=== PATIENT | female | born 1950 | race Caucasian/White ===

== ENCOUNTER 2024-08-24 10:58 | Inpatient (IN) | payer OTHER, MEDICARE, SELFPAY ==
[2024-08-24] VITALS (39 sets, daily range): BP systolic 110–195; BP diastolic 52–86; PULSE 98–139; RESP 13–37; TEMP 36.9–37.6; O2SAT 91–99; BMI 48.2; BMI 49.6
--- NOTE | 2024-08-24 11:48 | DI.RAD.S_ITS ---
PROCEDURE: XR CHEST 1V INDICATIONS: suspected sepsis TECHNIQUE: One view of the chest was acquired. COMPARISON: None. FINDINGS: Surgical changes and devices: None. Lungs and pleura: Lungs are clear. No pleural effusions or pneumothorax. Mediastinum: Mediastinal contours appear normal. Heart size is normal. Bones and chest wall: No suspicious bony lesions. Overlying soft tissues appear unremarkable. IMPRESSION: No acute pulmonary process. Dictated by: Lamar Hui M.D. on 08/24/2024 at 12:34 Approved by: Lamar Hui M.D. on 08/24/2024 at 12:34
--- NOTE | 2024-08-24 11:48 | EKG_ITS ---
[place] [id number] [place] [id number] Test Date: 2024-08-24 Pat Name: Ximena Steve Department: [facility] Room: Gender: Female Manager Location: [place] : 1950 Requested By: Order Number: [id number] Reading MD: Marvin Chaidez Measurements Intervals [place] Rate: 121 P: 87 [place]: 166 QRS: -8 QRSD: 68 T: 70 QT: 302 QTc: 428 Interpretive Statements Sinus tachycardia Inferior infarct , age undetermined Anteroseptal infarct , age undetermined Electronically Signed On 08-27-2024 15:53:02 PDT by Marvin Chaidez
[2024-08-24 12:11] LABS: Hematocrit 38.5 % (36-46); Hemoglobin 12.7 g/dL (12.0-16.0); Mean Corpuscular HGB Conc 32.9 % (30-36); Mean Corpuscular Hemoglobin 29.3 PG (26-34); Mean Corpuscular Volume 89.1 fL (80-100); Platelet Count 351 X10^3/uL (150-400); Red Blood Cell Count 4.32 X10^6/uL (4.0-5.2); Red Cell Distribution Width 14.3 % (11.6-14.8)
[2024-08-24 12:12] LABS: White Blood Cell Count 31.5 X10^3/uL (4.5-11.0)
[2024-08-24 12:13] LABS: Add Manual Diff / Slide Review YES
--- NOTE | 2024-08-24 12:21 | ED_ITS ---
HPI - Skin/Abscess/Foreign Bdy General Chief complaint: Weakness Stated complaint: high fever, weakness, shaking Time Seen by Provider: 08/24/24 12:11 Source: patient Mode of arrival: Family Vehicle Limitations: no limitations History of Present Illness HPI narrative: Patient 74-year-old female who does not go to doctors takes no medication presents today with left lower extremity redness. She reports it just came on overnight. It is mildly tender. She does meet sepsis criteria she is tachycardic with probable infection. She denies any chest pain cough or shortness of breath. No painful frequent urination. [id number] at bedside reports car ride to [place] last month. Related Data Previous Rx's Medication Instructions Recorded alprazolam 1 mg tablet (Xanax) 1 mg PO Q6HP PRN #4 tabs 06/08/16 Allergies Allergy/AdvReac Type Severity Reaction Status Date / Time hydrocodone [HYDROCODONE] Allergy Unknown Verified 08/24/24 11:46 Penicillins [PENICILLINS] Allergy Unknown HIVES Verified 08/24/24 11:46 sulfamethoxazole Allergy Unknown Verified 08/24/24 11:46 [SULFAMETHOXAZOLE] trimethoprim [TRIMETHOPRIM] Allergy Unknown Verified 08/24/24 11:46 Patient History Surgical History Status post surgery (03/18/14) Social History Smoking Status: Former smoker Smoking Status: Former smoker tobacco type: cigarettes alcohol intake frequency: 0-2 drinks per day Substance Use Type: does not use Exam Initial Vital Signs Initial Vital Signs: Vital Signs Temperature 98.5 F 08/24/24 11:41 Pulse Rate 125 H 08/24/24 11:41 Respiratory Rate 22 08/24/24 11:41 Blood Pressure 175/78 H 08/24/24 11:41 Pulse Oximetry 98 08/24/24 11:41 Oxygen Delivery Method Room Air 08/24/24 11:41 GENERAL: Alert 74-year-old female morbidly obese HEENT: Head atraumatic,EOMI, pupils reactive, face symmetric, moist mucous membranes CARDIOVASCULAR: Regular rate and rhythm without murmurs, rubs or gallops. RESPIRATORY: Breath sounds equal bilaterally, no wheezes rales or rhonchi. ABDOMEN: Soft, nontender. Normoactive bowel sounds all 4 quadrants. No guarding or rebound. EXTREMITIES: Normal range of motion, no clubbing or edema. Neurovascularly intact NEUROLOGICAL: Alert and oriented x4.Normal gait and speech. Cranial nerves II through XII grossly intact. SKIN: Left lower extremity erythema without fluctuation up to knee Course Orders Ordered: ED Orders 08/24/24 11:48 XR chest 1V Stat EKG-12 Lead Stat RT Consult Eval and Treat NOW 08/24/24 11:50 Complete Blood Count AUTO DIFF Stat Comprehensive Metabolic Panel Stat Covid-19 + FLU A/B + RSV - PCR Stat Lactate (Lactic Acid) Stat Lipase Stat PTT Partial Thromboplastin [place] Stat Procalcitonin Stat Prothrombin Time INR Stat 08/24/24 12:02 Blood Culture Stat 08/24/24 12:57 CT LE LT w con Stat 08/24/24 14:10 Lactate (Lactic Acid) Stat Troponin & CK Cardiac Panel Stat 08/24/24 14:59 US periph venous low extrem lt Stat 08/24/24 15:21 UA Complete [Urinalysis and Microscopic] Stat Urine Culture Stat Acetaminophen (Acetaminophen 325 Mg Tablet) 650 mg PO Q6H PRN PRN Reason: Fever/Mild Pain (1-3) Enoxaparin Sodium (Enoxaparin 40 Mg/0.4 Ml Syringe) 40 mg SUBCUT DAILY KRISTAL Sodium Chloride (Normal Saline 0.9%) 1,000 mls @ 100 mls/hr IV CONT KRISTAL Last Infusion: 08/24/24 18:40 Dose: 100 mls/hr Documented By: Infusion: 08/24/24 18:37 Dose: 0 mls/hr Documented By: Admin: 08/24/24 15:54 Dose: 100 mls/hr Documented By: NATHAN Sodium Chloride (Normal Saline 0.9%) 1,000 mls @ 150 mls/hr IV CONT KRISTAL Ceftriaxone Sodium 2,000 mg/ (Sodium Chloride) 100 mls @ 200 mls/hr IV Q24H KRISTAL Lorazepam (Lorazepam 2 Mg/Ml Inj) 0.5 mg IV Q4HR PRN PRN Reason: Anxiety Naloxone HCl (Naloxone 0.4 Mg/Ml Vial) 0.2 mg IV Q2MIN PRN PRN Reason: Opiate Reversal Ondansetron HCl (Ondansetron 4 Mg/2 Ml Inj) 4 mg IV NOW PRN PRN Reason: Nausea And Vomiting Ondansetron HCl (Ondansetron 4 Mg Odt) 4 mg SL NOW PRN PRN Reason: Nausea And Vomiting Ondansetron HCl (Ondansetron 4 Mg/2 Ml Inj) 4 mg IV Q8HR PRN PRN Reason: Nausea And Vomiting Vancomycin HCl (Vancomycin Per Pharmacy) 1 request MISC NOW PRN PRN Reason: cellulitis Discontinued Medications Ceftriaxone Sodium (Ceftriaxone 2,000 Mg Vial) 1,000 mg IM NOW ONE Stop: 08/24/24 12:26 Last Admin: 08/24/24 12:57 Dose: Not Given Documented By: NATHAN Sodium Chloride (Normal Saline 0.9%) 1,000 mls @ 1,000 mls/hr IV BOLUS ONE Stop: 08/24/24 12:46 Last Admin: 08/24/24 12:48 Dose: Not Given Documented By: NATHAN Sodium Chloride (Normal Saline 0.9%) 1,779 mls @ 593 mls/hr 30 ml/kg infuse over 3 hr (1779 ml) IV NOW ONE Stop: 08/24/24 15:35 Last Infusion: 08/24/24 15:54 Dose: Infused Documented By: Admin: 08/24/24 12:47 Dose: 593 mls/hr Documented By: NATHAN Ceftriaxone Sodium 1,000 mg/ (Sodium Chloride) 100 mls @ 200 mls/hr IV NOW ONE Stop: 08/24/24 12:37 Last Infusion: 08/24/24 14:02 Dose: Infused Documented By: Admin: 08/24/24 12:46 Dose: 200 mls/hr Documented By: NATHAN Vancomycin HCl/Dextrose (Vancomycin) 2,000 mg in 400 mls @ 200 mls/hr IV NOW ONE Stop: 08/24/24 17:58 Last Infusion: 08/24/24 18:38 Dose: Infused Documented By: Admin: 08/24/24 16:13 Dose: 200 mls/hr Documented By: NATHAN Lidocaine HCl (Lidocaine 1% (Pf) 5 Ml) 4.2 ml INJ NOW ONE Stop: 08/24/24 12:26 Last Admin: 08/24/24 12:57 Dose: Not Given Documented By: NATHAN Vital Signs Vital signs: Vital Signs - 8 hr 08/24/24 11:41 08/24/24 12:28 08/24/24 12:30 Temperature 98.5 F Pulse Rate 125 H 139 H 125 H Respiratory Rate 22 Blood Pressure 175/78 H Pulse Oximetry 98 98 98 Oxygen Delivery Method Room Air 08/24/24 12:30 08/24/24 12:33 08/24/24 12:33 Temperature Pulse Rate 122 H Respiratory Rate 16 Blood Pressure 188/86 H 183/78 H Pulse Oximetry 99 Oxygen Delivery Method 08/24/24 12:57 08/24/24 12:57 08/24/24 13:00 Temperature Pulse Rate 119 H 120 H Respiratory Rate 18 20 Blood Pressure 186/80 H Pulse Oximetry 98 97 Oxygen Delivery Method 08/24/24 13:30 08/24/24 13:31 08/24/24 13:31 Temperature Pulse Rate 112 H 113 H Respiratory Rate 24 22 Blood Pressure 168/70 H Pulse Oximetry 96 96 Oxygen Delivery Method 08/24/24 14:00 08/24/24 14:01 08/24/24 14:01 Temperature Pulse Rate 113 H 112 H Respiratory Rate 22 24 Blood Pressure 192/74 H Pulse Oximetry 97 96 Oxygen Delivery Method 08/24/24 14:30 08/24/24 14:31 08/24/24 14:31 Temperature Pulse Rate 116 H 118 H Respiratory Rate 24 26 H Blood Pressure 159/70 H Pulse Oximetry 98 98 Oxygen Delivery Method 08/24/24 15:00 08/24/24 15:01 08/24/24 15:01 Temperature Pulse Rate 125 H 127 H Respiratory Rate 22 24 Blood Pressure 155/69 H Pulse Oximetry 97 98 Oxygen Delivery Method 08/24/24 15:30 08/24/24 15:37 08/24/24 16:00 Temperature Pulse Rate 119 H 118 H 120 H Respiratory Rate 24 33 H 32 H Blood Pressure 141/58 H 139/62 Pulse Oximetry 98 96 94 Oxygen Delivery Method MDM - Skin/Abscess/Foreign Bdy Lab Data 08/24/24 11:50 08/24/24 11:50 Labs: Lab Results 08/24/24 08/24/24 08/24/24 Range/Units 11:50 13:56 14:10 WBC 31.5 H* (4.5-11.0) X10^3/uL RBC 4.32 (4.0-5.2) X10^6/uL Hgb 12.7 (12.0-16.0) g/dL Hct 38.5 (36-46) % MCV 89.1 (80-100) fL MCH 29.3 (26-34) PG MCHC 32.9 (30-36) % RDW 14.3 (11.6-14.8) % Plt Count 351 (150-400) X10^3/uL Neut % (Auto) Not Reportable Lymph % (Auto) Not Reportable [place] % (Auto) Not Reportable Eos % (Auto) Not Reportable Baso % (Auto) Not Reportable Lymph # (Auto) Not Reportable [place] # (Auto) Not Reportable Baso # (Auto) Not Reportable Total Counted 100 Seg Neutrophils % 82.0 H (38-70) % Band Neutrophils % 5.0 (3-7) % Lymphocytes % (Manual) 7.0 L (25-45) % Atypical Lymphs % 4.0 H ( - 0) % Monocytes % (Manual) 2.0 (2-11) % Neutrophils # (Manual) 82285 H (7683-5574) /uL RBC Morphology Normal morphology PT 11.7 (9.4-12.5) SECONDS INR 1.0 (0.9-1.3) APTT 37 H (25.1-36.5) SECONDS Sodium 130 L (137-145) mmol/L Potassium 4.0 (3.4-5.1) mmol/L Chloride 95 L (98-107) mmol/L Carbon Dioxide 23 (22-32) mmol/L BUN 18 H (7-17) mg/dL Creatinine 0.63 (0.52-1.04) mg/dL Estimated GFR > 60 (>60) mL/min BUN/Creatinine Ratio 28.6 H (6-22) Glucose 217 H (80-110) mg/dL Lactate 4.4 H* 4.4 H* 3.1 H (0.7-2.1) mmol/L Calcium 10.2 (8.4-10.2) mg/dL Total Bilirubin 0.9 (0.2-1.3) mg/dL AST 35 (14-36) IU/L ALT 50 H (<35) IU/L Alkaline Phosphatase 71 (38-126) U/L Total Creatine Kinase 43 (30-135) U/L Troponin I < 0.012 (0.01-0.034) ng/mL Total Protein 7.6 (6.3-8.2) g/dL Albumin 4.3 (3.5-5.0) g/dL Globulin 3.3 (1.7-4.1) g/dL Albumin/Globulin Ratio 1.3 (1.0-2.8) Lipase 29 (23-300) U/L Procalcitonin 7.32 H (<0.5) ng/mL Urine Color Urine Appearance Urine pH (4.5-8.0) Ur Specific [place] (1.000-1.035) Urine Protein (Negative) Urine Glucose (UA) (Negative) g/dL Urine Ketones (NEGATIVE) Urine Occult Blood (Negative) Urine Nitrate (Negative) Urine Bilirubin (NEGATIVE) Urine Urobilinogen (0.2) E.U./dL Ur Leukocyte Esterase (NEGATIVE) Urine RBC (0-5/HPF) Urine WBC (0-5/HPF) Ur Squamous Epith Cells (0-5/HPF) Urine Bacteria (None) Ur Culture Indicated? Vol Urine Centrifuged SARS-CoV-2 (PCR) Negative (Negative) Influenza A (RT-PCR) Flu a negative (NEGATIVE) Influenza B (RT-PCR) Flu b negative (NEGATIVE) RSV (PCR) Negative (Negative) 08/24/24 Range/Units 15:21 WBC (4.5-11.0) X10^3/uL RBC (4.0-5.2) X10^6/uL Hgb (12.0-16.0) g/dL Hct (36-46) % MCV (80-100) fL MCH (26-34) PG MCHC (30-36) % RDW (11.6-14.8) % Plt Count (150-400) X10^3/uL Neut % (Auto) Lymph % (Auto) [place] % (Auto) Eos % (Auto) Baso % (Auto) Lymph # (Auto) [place] # (Auto) Baso # (Auto) Total Counted Seg Neutrophils % (38-70) % Band Neutrophils % (3-7) % Lymphocytes % (Manual) (25-45) % Atypical Lymphs % ( - 0) % Monocytes % (Manual) (2-11) % Neutrophils # (Manual) (0045-2955) /uL RBC Morphology PT (9.4-12.5) SECONDS INR (0.9-1.3) APTT (25.1-36.5) SECONDS Sodium (137-145) mmol/L Potassium (3.4-5.1) mmol/L Chloride (98-107) mmol/L Carbon Dioxide (22-32) mmol/L BUN (7-17) mg/dL Creatinine (0.52-1.04) mg/dL Estimated GFR (>60) mL/min BUN/Creatinine Ratio (6-22) Glucose (80-110) mg/dL Lactate (0.7-2.1) mmol/L Calcium (8.4-10.2) mg/dL Total Bilirubin (0.2-1.3) mg/dL AST (14-36) IU/L ALT (<35) IU/L Alkaline Phosphatase (38-126) U/L Total Creatine Kinase (30-135) U/L Troponin I (0.01-0.034) ng/mL Total Protein (6.3-8.2) g/dL Albumin (3.5-5.0) g/dL Globulin (1.7-4.1) g/dL Albumin/Globulin Ratio (1.0-2.8) Lipase (23-300) U/L Procalcitonin (<0.5) ng/mL Urine Color Yellow Urine Appearance Clear Urine pH 6.5 (4.5-8.0) Ur Specific [place] 1.010 (1.000-1.035) Urine Protein 1+ H (Negative) Urine Glucose (UA) Trace H (Negative) g/dL Urine Ketones 1+ H (NEGATIVE) Urine Occult Blood Negative (Negative) Urine Nitrate Positive H (Negative) Urine Bilirubin Negative (NEGATIVE) Urine Urobilinogen 0.2 (0.2) E.U./dL Ur Leukocyte Esterase Trace H (NEGATIVE) Urine RBC 0-1/hpf (0-5/HPF) Urine WBC 1-5/hpf (0-5/HPF) Ur Squamous Epith Cells 1-5 /hpf (0-5/HPF) Urine Bacteria Few (2-10) H (None) Ur Culture Indicated? Specimen cultured Vol Urine Centrifuged 10ml (spun) SARS-CoV-2 (PCR) (Negative) Influenza A (RT-PCR) (NEGATIVE) Influenza B (RT-PCR) (NEGATIVE) RSV (PCR) (Negative) Point of Care Testing Glucose POC 210 Urine Dip Bedside Urine Glucose Negative Bedside Urine Bilirubin - Negative Bedside Urine Ketone + 15 Urine Specific [place] 1.010 Bedside Urine Occult Blood +/- Bedside Urine pH 6.0 Bedside Urine Protein + 30 Bedside Urine Urobilinogen - Negative Bedside Urine Nitrite + Positive Bedside Urine Leukocytes +/- [address] LE: Radiologist's Impression: PROCEDURE: CT LE LT W CON INDICATIONS: sepsis cellulitis TECHNIQUE: After the administration of intravenous contrast, 3 mm axial sections acquired of the left lower extremity optimized for foot and calf visualization extending above the knee, with coronal and sagittal reformats. COMPARISON: None. FINDINGS: Image quality: Excellent. Bones: No evidence of trauma or osteomyelitis. Soft tissues: Soft tissue cutaneous thickening and edema within the subcutaneous fat without gas or foreign body found. IMPRESSION: No osteomyelitis, foreign body or abscess formation. CT findings consistent with cellulitis and secondary edema. Dictated by: Vern Willson M.D. on 08/24/2024 at 13:55 US - DVT: Radiologist's Impression: PROCEDURE: US PERIPH VENOUS LOW EXTREM LT INDICATIONS: SWELLING AND REDNESS. RECENT LONG CAR RIDE TECHNIQUE: Real-time imaging, as well as color and pulse Doppler interrogation, were performed of the lower extremity deep veins from the inguinal ligament to the popliteal fossa, with documentation of the visualized calf veins. COMPARISON: None. FINDINGS: The common femoral, femoral, popliteal, and the visualized calf veins are normally compressible, and free of intraluminal thrombus. Color and pulse Doppler demonstrate normal phasic intraluminal flow. There is normal augmentation response to distal compression maneuver. Limited quality visualization in the greater saphenous and common femoral vein areas due to body habitus and due to severe edema at the calf regions. IMPRESSION: No findings of lower extremity deep venous thrombosis. Dictated by: Vern Willson M.D. on 08/24/2024 at 16:22 Chest x-ray: Radiologist's Impression: PROCEDURE: XR CHEST 1V INDICATIONS: suspected sepsis TECHNIQUE: One view of the chest was acquired. COMPARISON: None. FINDINGS: Surgical changes and devices: None. Lungs and pleura: Lungs are clear. No pleural effusions or pneumothorax. Mediastinum: Mediastinal contours appear normal. Heart size is normal. Bones and chest wall: No suspicious bony lesions. Overlying soft tissues appear unremarkable. IMPRESSION: No acute pulmonary process. Dictated by: Lamar Hui M.D. on 08/24/2024 at 12:34 ECG Data Attestation: I personally reviewed and interpreted this ECG as follows: Prior ECG tracings: available for review Interpretation: Normal sinus rhythm rate 121 NE interval 166 QRS [address] changes MDM Narrative Medical decision making narrative: MDM CC: Left lower leg erythema Complicating co-morbidities: Obesity noncompliant no medications Data collected from: daughter in law Medical records reviewed: Node prior Differential considered: Necrotizing fasciitis cellulitis sepsis septic shock Exam documented above, pertinent findings include: Significant left leg erythema clear breath sounds abdomen soft obese Lab Test results independently reviewed as above. Pertinent findings: WBC 3.1 Lactate 4.4--> 4.4-->3.1 Prolactin 7.32 CMP shows sodium of 130 potassium 4.0 chloride 95 carbon dioxide 23 BUN 18 creatinine 0.6 glucose 217 Bilirubin liver enzymes within normal limits Troponin negative Urinalysis positive for nitrates, leukocytes and bacteria Independently reviewed EKG as above: Sinus tachycardia without ischemic changes Imaging studies independently reviewed: CT lower extremity does not show any evidence of gas or abscess Ultrasound no DVT Chest x-ray no pneumonia Consultations: Dr. Rodríguez accepts patient Treatments: Sepsis fluid, Rocephin, vancomycin Re-evaluations: Patient's heart rate has improved some with IV fluids blood pressure remained stable actually even hypertensive Discussion: Patient 74-year-old female presents today with left leg erythema and cellulitis she reports it just showed up last night. However she is found to have significant leukocytosis of 31,000 lactic acid 4.4, concerning for severe sepsis. She actually does not have any hypotension she is given sepsis fluids and ultimately lactate does improve. She is empirically given antibiotics of Rocephin and vancomycin. Urinalysis is found to be consistent with UTI with nitrates leukocytes and bacteria as well. I suspect simultaneous infection or cellulitis and UTI. She has no evidence of necrotizing fasciitis or lower extremity abscess. Patient traveled to [place] recently so DVT ultrasound was done and does not show any evidence of DVT. Discharge Plan Departure Patient Disposition: Admitted As Inpatient Clinical Impression: Cellulitis, Sepsis, Acute UTI Admit Date/Time: 08/24/24 16:13 Admit Provider: Stanley Rodríguez V
[2024-08-24 12:22] LABS: Prothrombin Time 11.7 SECONDS (9.4-12.5)
[2024-08-24 12:24] LABS: PTT Partial Thromboplastin Tim 37 SECONDS (25.1-36.5)
[2024-08-24 12:28] LABS: Neutrophils Absolute Manual 27405 /uL (3000-5900); RBC Morphology Normal Morphology; Total Cells Counted 100
[2024-08-24 12:29] LABS: Alanine Aminotransferase 50 IU/L (<35); Albumin 4.3 g/dL (3.5-5.0); Albumin Globulin Ratio 1.3 (1.0-2.8); Alkaline Phosphatase 71 U/L (38-126); Aspartate Aminotransferase 35 IU/L (14-36); BUN Creatinine Ratio 28.6 (6-22); Bilirubin Total 0.9 mg/dL (0.2-1.3); Blood Urea Nitrogen 18 mg/dL (7-17); Calcium 10.2 mg/dL (8.4-10.2); Carbon Dioxide 23 mmol/L (22-32); Chloride 95 mmol/L (98-107); Estimated Glomerular Filt Rate > 60 mL/min (>60); Globulin 3.3 g/dL (1.7-4.1); Glucose 217 mg/dL (80-110); HEMOLYSIS < 15 (0-50); Lipase 29 U/L (23-300); Sodium 130 mmol/L (137-145); Total Protein 7.6 g/dL (6.3-8.2)
[2024-08-24 12:32] LABS: Lactate (Lactic Acid) 4.4 mmol/L (0.7-2.1)
[2024-08-24 12:45] LABS: Influenza A - CEPHEID Flu A NEGATIVE (NEGATIVE); Influenza B - CEPHEID Flu B NEGATIVE (NEGATIVE); Respiratory Syncytial Virus Negative (Negative)
[2024-08-24 12:46] LABS: Procalcitonin 7.32 ng/mL (<0.5)
[2024-08-24] MEDS: cefTRIAXone 1,000 MG in SODIUM CHLORIDE 0.9% 100 ML 200 MG IV (12:46)
[2024-08-24] MEDS: SODIUM CHLORIDE 0.9% 1,779 ML 593 ML IV (12:47)
--- NOTE | 2024-08-24 12:57 | DI.CT.S_ITS ---
PROCEDURE: CT LE LT W CON INDICATIONS: sepsis cellulitis TECHNIQUE: After the administration of intravenous contrast, 3 mm axial sections acquired of the left lower extremity optimized for foot and calf visualization extending above the knee, with coronal and sagittal reformats. COMPARISON: None. FINDINGS: Image quality: Excellent. Bones: No evidence of trauma or osteomyelitis. Soft tissues: Soft tissue cutaneous thickening and edema within the subcutaneous fat without gas or foreign body found. IMPRESSION: No osteomyelitis, foreign body or abscess formation. CT findings consistent with cellulitis and secondary edema. Dictated by: Vern Willson M.D. on 08/24/2024 at 13:55 Approved by: Vern Willson M.D. on 08/24/2024 at 13:57
[2024-08-24 13:14] LABS: COVID-19 CEPHEID 4-PLEX PCR Negative (Negative)
[2024-08-24 13:37] LABS: Reflexed Lactate in 2 Hours Y
[2024-08-24 14:20] LABS: Lactate 2HR (Lactic Acid Rflx) 4.4 mmol/L (0.7-2.1)
--- NOTE | 2024-08-24 14:59 | DI.US.S_ITS ---
PROCEDURE: US PERIPH VENOUS LOW EXTREM LT INDICATIONS: SWELLING AND REDNESS. RECENT LONG CAR RIDE TECHNIQUE: Real-time imaging, as well as color and pulse Doppler interrogation, were performed of the lower extremity deep veins from the inguinal ligament to the popliteal fossa, with documentation of the visualized calf veins. COMPARISON: None. FINDINGS: The common femoral, femoral, popliteal, and the visualized calf veins are normally compressible, and free of intraluminal thrombus. Color and pulse Doppler demonstrate normal phasic intraluminal flow. There is normal augmentation response to distal compression maneuver. Limited quality visualization in the greater saphenous and common femoral vein areas due to body habitus and due to severe edema at the calf regions. IMPRESSION: No findings of lower extremity deep venous thrombosis. Dictated by: Vern Willson M.D. on 08/24/2024 at 16:22 Approved by: Vern Willson M.D. on 08/24/2024 at 16:23
[2024-08-24 15:33] LABS: Appearance Urine UA CLEAR; Bilirubin Urine UA NEGATIVE (NEGATIVE); Color Urine UA YELLOW; Glucose Urine UA TRACE g/dL (Negative); Ketones Urine UA 1+ (NEGATIVE); Nitrite Urine UA POSITIVE (Negative); Occult Blood Urine UA NEGATIVE (Negative); Protein Urine UA 1+ (Negative); Urobilinogen Urine UA 0.2 E.U./dL (0.2)
[2024-08-24 15:40] LABS: Bacteria Urine Few (2-10); Culture Indicated Urine Specimen Cultured; Leukocyte Esterase Urine UA TRACE (NEGATIVE); RBC Urine 0-1/HPF (0-5/HPF); Squamous Epithelial Cell Urine 1-5 /HPF (0-5/HPF); Urine Volume 10mL (spun); WBC Urine 1-5/HPF (0-5/HPF); pH Urine UA 6.5 (4.5-8.0)
[2024-08-24] MEDS: SODIUM CHLORIDE 0.9% 1,000 ML 100 ML IV (15:54)
[2024-08-24] MEDS: VANCOMYCIN 2,000 MG/400 ML PIGGYBACK 200 MG IV (16:13)
[2024-08-24 16:36] LABS: Lactate (Lactic Acid) 3.1 mmol/L (0.7-2.1)
[2024-08-24 16:37] LABS: Creatine Kinase 43 U/L (30-135)
[2024-08-24 16:49] LABS: Troponin I < 0.012 ng/mL (0.01-0.034)
[2024-08-24 17:57] LABS: Reflexed Lactate in 2 Hours Y
[2024-08-24 18:54] LABS: Lactate 2HR (Lactic Acid Rflx) 3.2 mmol/L (0.7-2.1)
--- NOTE | 2024-08-24 18:56 | P.HP_ITS ---
History of Present Illness History of Present Illness Date Patient Seen: 08/24/24 Time Patient Seen: 17:50 Date of Onset of Symptoms: 08/24/24 Chief complaint: high fever, weakness, shaking Narrative: 74-year-old woman without a primary care provider, last seen several years ago by physician, not taking medications other than supplemental vitamin-D, presented to the emergency department with severe shaking chills and noticed left leg redness that came on last night. She presented to the emergency department today she did not want to have another night of shaking chills. She is seen with her son Rubén and [id number]-bwh Debby, and has no chest pain, breathing problems, nausea, vomiting, diarrhea, urinary symptoms headache, lightheadedness or falls. She notes a longstanding history of severe claustrophobia and anxiety. [facility] Surgical History Status post surgery (03/18/14) Social History Smoking Status: Former smoker Meds Home Medications and Allergies Home Medications Medication Instructions Recorded Confirmed Type alprazolam 1 mg tablet (Xanax) 1 mg PO Q6HP PRN #4 tabs 06/08/16 Rx Allergies Allergy/AdvReac Type Severity Reaction Status Date / Time hydrocodone [HYDROCODONE] Allergy Unknown Verified 08/24/24 11:46 Penicillins [PENICILLINS] Allergy Unknown HIVES Verified 08/24/24 11:46 sulfamethoxazole Allergy Unknown Verified 08/24/24 11:46 [SULFAMETHOXAZOLE] trimethoprim [TRIMETHOPRIM] Allergy Unknown Verified 08/24/24 11:46 Review of Systems Review of Systems ROS: Yes All systems reviewed with the patient and are negative except as otherwise documented Exam Vital Signs (past 8 hours): - 08/24/24 11:41 08/24/24 12:28 08/24/24 12:30 Temperature 98.5 F Pulse Rate 125 H 139 H 125 H Respiratory Rate 22 Blood Pressure 175/78 H Pulse Oximetry 98 98 98 Oxygen Delivery Method Room Air 08/24/24 12:30 08/24/24 12:33 08/24/24 12:33 Temperature Pulse Rate 122 H Respiratory Rate 16 Blood Pressure 188/86 H 183/78 H Pulse Oximetry 99 Oxygen Delivery Method 08/24/24 12:57 08/24/24 12:57 08/24/24 13:00 Temperature Pulse Rate 119 H 120 H Respiratory Rate 18 20 Blood Pressure 186/80 H Pulse Oximetry 98 97 Oxygen Delivery Method 08/24/24 13:30 08/24/24 13:31 08/24/24 13:31 Temperature Pulse Rate 112 H 113 H Respiratory Rate 24 22 Blood Pressure 168/70 H Pulse Oximetry 96 96 Oxygen Delivery Method 08/24/24 14:00 08/24/24 14:01 08/24/24 14:01 Temperature Pulse Rate 113 H 112 H Respiratory Rate 22 24 Blood Pressure 192/74 H Pulse Oximetry 97 96 Oxygen Delivery Method 08/24/24 14:30 08/24/24 14:31 08/24/24 14:31 Temperature Pulse Rate 116 H 118 H Respiratory Rate 24 26 H Blood Pressure 159/70 H Pulse Oximetry 98 98 Oxygen Delivery Method 08/24/24 15:00 08/24/24 15:01 08/24/24 15:01 Temperature Pulse Rate 125 H 127 H Respiratory Rate 22 24 Blood Pressure 155/69 H Pulse Oximetry 97 98 Oxygen Delivery Method 08/24/24 15:30 08/24/24 15:37 08/24/24 16:00 Temperature Pulse Rate 119 H 118 H 120 H Respiratory Rate 24 33 H 32 H Blood Pressure 141/58 H 139/62 Pulse Oximetry 98 96 94 Oxygen Delivery Method 08/24/24 16:31 08/24/24 17:01 08/24/24 17:31 Temperature Pulse Rate 118 H 115 H 119 H Respiratory Rate 32 H 33 H 36 H Blood Pressure 180/74 H 169/72 H 157/66 H Pulse Oximetry 95 96 Oxygen Delivery Method Room Air Oxygen Delivery Method Room Air Narrative Exam Narrative: GENERAL: This is a well-nourished, well-developed obese female patient, appears anxious otherwise in no apparent distress. EYES: Pupils equal round and reactive. Extraocular motions intact. No scleral icterus. No injection or drainage. ENT: Mucous membranes pink and moist. NECK: Trachea midline. No JVD, bruits or lymphadenopathy. Supple, nontender, no meningeal signs. CARDIOVASCULAR: Regular rate and rhythm without murmurs, gallops, or rubs. RESPIRATORY: Clear to auscultation. GASTROINTESTINAL: Abdomen soft, non-tender, nondistended. EXTREMITIES: No clubbing, cyanosis, or edema. NEUROLOGIC: Alert, oriented, speech fluent, full upper and lower motor strength, no focal deficits evident. DERMATOLOGIC: Left lower extremity with erythema and tenderness over the lower 1/3 of the anterior anderson. Objective ECG Impression: Sinus tachycardia 121 beats per minute, Q-wave in lead 3 and cross anterior precordium consistent with anteroseptal infarct Imaging Chest x-ray: Radiologist's impression: No acute pulmonary process. Left lower extremity CT scan:: Radiologist's impression: No osteomyelitis, foreign body or abscess formation. CT findings consistent with cellulitis and secondary edema. Left lower extremity vascular ultrasound:: Radiologist's impression: No findings of lower extremity deep venous thrombosis. Labs 08/24/24 11:50 08/24/24 11:50 Labs: Laboratory Results - last 24 hr 08/24/24 08/24/24 08/24/24 11:50 13:56 14:10 WBC 31.5 H* RBC 4.32 Hgb 12.7 Hct 38.5 MCV 89.1 MCH 29.3 MCHC 32.9 RDW 14.3 Plt Count 351 Neut % (Auto) Not Reportable Lymph % (Auto) Not Reportable [place] % (Auto) Not Reportable Eos % (Auto) Not Reportable Baso % (Auto) Not Reportable Lymph # (Auto) Not Reportable [place] # (Auto) Not Reportable Baso # (Auto) Not Reportable Total Counted 100 Seg Neutrophils % 82.0 H Band Neutrophils % 5.0 Lymphocytes % (Manual) 7.0 L Atypical Lymphs % 4.0 H Monocytes % (Manual) 2.0 Neutrophils # (Manual) 02132 H RBC Morphology Normal morphology PT 11.7 INR 1.0 APTT 37 H Sodium 130 L Potassium 4.0 Chloride 95 L Carbon Dioxide 23 BUN 18 H Creatinine 0.63 Estimated GFR > 60 BUN/Creatinine Ratio 28.6 H Glucose 217 H Lactate 4.4 H* 4.4 H* 3.1 H Calcium 10.2 Total Bilirubin 0.9 AST 35 ALT 50 H Alkaline Phosphatase 71 Total Creatine Kinase 43 Troponin I < 0.012 Total Protein 7.6 Albumin 4.3 Globulin 3.3 Albumin/Globulin Ratio 1.3 Lipase 29 Procalcitonin 7.32 H Urine Color Urine Appearance Urine pH Ur Specific [place] Urine Protein Urine Glucose (UA) Urine Ketones Urine Occult Blood Urine Nitrate Urine Bilirubin Urine Urobilinogen Ur Leukocyte Esterase Urine RBC Urine WBC Ur Squamous Epith Cells Urine Bacteria Ur Culture Indicated? Vol Urine Centrifuged SARS-CoV-2 (PCR) Negative Influenza A (RT-PCR) Flu a negative Influenza B (RT-PCR) Flu b negative RSV (PCR) Negative 08/24/24 15:21 WBC RBC Hgb Hct MCV MCH MCHC RDW Plt Count Neut % (Auto) Lymph % (Auto) [place] % (Auto) Eos % (Auto) Baso % (Auto) Lymph # (Auto) [place] # (Auto) Baso # (Auto) Total Counted Seg Neutrophils % Band Neutrophils % Lymphocytes % (Manual) Atypical Lymphs % Monocytes % (Manual) Neutrophils # (Manual) RBC Morphology PT INR APTT Sodium Potassium Chloride Carbon Dioxide BUN Creatinine Estimated GFR BUN/Creatinine Ratio Glucose Lactate Calcium Total Bilirubin AST ALT Alkaline Phosphatase Total Creatine Kinase Troponin I Total Protein Albumin Globulin Albumin/Globulin Ratio Lipase Procalcitonin Urine Color Yellow Urine Appearance Clear Urine pH 6.5 Ur Specific [place] 1.010 Urine Protein 1+ H Urine Glucose (UA) Trace H Urine Ketones 1+ H Urine Occult Blood Negative Urine Nitrate Positive H Urine Bilirubin Negative Urine Urobilinogen 0.2 Ur Leukocyte Esterase Trace H Urine RBC 0-1/hpf Urine WBC 1-5/hpf Ur Squamous Epith Cells 1-5 /hpf Urine Bacteria Few (2-10) H Ur Culture Indicated? Specimen cultured Vol Urine Centrifuged 10ml (spun) SARS-CoV-2 (PCR) Influenza A (RT-PCR) Influenza B (RT-PCR) RSV (PCR) Assessment & Plan Assessment & Plan narrative: 1. Left lower extremity cellulitis. Treat with IV ceftriaxone and vancomycin pending cultures. 2. Sepsis syndrome due to 1., with leukocytosis, elevated lactate level, fever and tachycardia. Treat underlying infection and with fluids and monitor serial lactates. 3. Elevated blood pressures. Monitor with treatment. 4. Anxiety. Treat with benzodiazepine as needed. 5. Obesity. 6. DVT prophylaxis. Treat with low-dose subcutaneous Lovenox. 7. Code status: Full code. However she states due to severe claustrophobia she would never want to be intubated. Plan: -admit as inpatient -IV ceftriaxone and vancomycin -IV hydration -serial lactate levels -monitor blood counts and renal function -subcutaneous Lovenox -full code The patient is admitted as inpatient as she will require at least 2 midnights inpatient level care. Time-Based Coding :: [TOTAL MINUTES] spent with patient and on the chart (including review of chart, obtaining history, exam, reviewing outside data, placing orders, documenting exam and treatment plan, and counseling patient) on [DATE]. Quality MIPS - Admit I confirm the patient?s Advance Care Plan is present, Code status is documented, Surrogate decision maker is in patient?s record [If Yes, STOP here]: Yes MIPS - Meds 'Current medications' to include all prescriptions, [id number] products, herbals, cannabis/cannabidiol products, and vitamin/mineral/dietary (nutritional) supplements. I have utilized all available resources to obtain, update, or review the patient?s current medications. [If Yes, STOP here]: Yes PROFEE Charge Codes Initial inpatient/observation care: [id number]
[2024-08-24] MEDS: cefTRIAXone 2,000 MG in SODIUM CHLORIDE 0.9% 100 ML 200 MG IV (19:21)
[2024-08-24] MEDS: SODIUM CHLORIDE 0.9% 1,000 ML 150 ML IV (19:27)
[2024-08-24] MEDS: LORazepam 2 MG/ML INJ 0.5 MG IV (19:32)
--- NOTE | 2024-08-24 21:00 | PC.WOUNDPHOT ---
L Great toe LLE
[2024-08-24 22:03] LABS: Lactate (Lactic Acid) 2.3 mmol/L (0.7-2.1)
[2024-08-24 23:24] LABS: Reflexed Lactate in 2 Hours Y
[2024-08-25] VITALS (23 sets, daily range): BP systolic 132–174; BP diastolic 60–72; PULSE 95–112; RESP 16–37; TEMP 36.5–37.9; O2SAT 92–99
[2024-08-25 00:17] LABS: Lactate 2HR (Lactic Acid Rflx) 1.9 mmol/L (0.7-2.1)
[2024-08-25] MEDS: ACETAMINOPHEN 325 MG TABLET 650 MG PO (01:12)
[2024-08-25 03:16] LABS: Add Manual Diff / Slide Review NO; Basophils Absolute Auto 0 /uL (0-100); Basophils Percent Auto 0.2 % (0-2); Eosinophils Absolute Auto 0 /uL (0-450); Eosinophils Percent Auto 0.1 % (2-4); Lymphocytes Absolute Auto 1700 /uL (1100-4500); Lymphocytes Percent Auto 9.9 % (25-40); Mean Corpuscular HGB Conc 33.4 % (30-36); Mean Corpuscular Hemoglobin 29.7 PG (26-34); Mean Corpuscular Volume 88.9 fL (80-100); Monocytes Absolute Auto 700 /uL (0-900); Monocytes Percent Auto 4.2 % (3-14); Neutrophils Absolute Auto 14600 /uL (1500-7000); Neutrophils Percent Auto 85.6 % (50-75); Platelet Count 256 X10^3/uL (150-400); Red Blood Cell Count 3.37 X10^6/uL (4.0-5.2); White Blood Cell Count 17.1 X10^3/uL (4.5-11.0)
[2024-08-25] MEDS: VANCOMYCIN 1,500 MG/300 ML PIGGYBACK 200 MG IV ×2 (03:16→15:32)
[2024-08-25] MEDS: SODIUM CHLORIDE 0.9% 1,000 ML 100 ML IV ×2 (03:20→14:51)
[2024-08-25 03:31] LABS: Alanine Aminotransferase 22 IU/L (<35); Albumin 3.1 g/dL (3.5-5.0); Albumin Globulin Ratio 1.1 (1.0-2.8); Alkaline Phosphatase 60 U/L (38-126); Aspartate Aminotransferase 25 IU/L (14-36); BUN Creatinine Ratio 21.3 (6-22); Bilirubin Total 0.4 mg/dL (0.2-1.3); Blood Urea Nitrogen 13 mg/dL (7-17); Calcium 8.7 mg/dL (8.4-10.2); Carbon Dioxide 23 mmol/L (22-32); Chloride 104 mmol/L (98-107); Estimated Glomerular Filt Rate > 60 mL/min (>60); Globulin 2.8 g/dL (1.7-4.1); Glucose 168 mg/dL (80-110); HEMOLYSIS < 15 (0-50); Potassium 3.5 mmol/L (3.4-5.1); Sodium 132 mmol/L (137-145); Total Protein 5.9 g/dL (6.3-8.2)
[2024-08-25 03:42] LABS: Troponin I < 0.012 ng/mL (0.01-0.034)
[2024-08-25] MEDS: POTASSIUM CHLORIDE 20 MEQ TAB 40 MEQ PO (07:59)
[2024-08-25] MEDS: ENOXAPARIN 40 MG/0.4 ML SYRINGE SUBCUT ×2 (09:39→20:10)
--- NOTE | 2024-08-25 14:43 | PM.PN.1 ---
Subjective Subjective Date Patient Seen: 08/25/24 Time Patient Seen: 08:05 Interval history: 74-year-old woman without a primary care provider, last seen several years ago by physician, not taking medications other than supplemental vitamin-D, presented to the emergency department with severe shaking chills and noticed left leg redness that came on last night. She presented to the emergency department today she did not want to have another night of shaking chills. She is seen with her son Rubén and [id number]-tm-tiy Debby, and has no chest pain, breathing problems, nausea, vomiting, diarrhea, urinary symptoms headache, lightheadedness or falls. She notes a longstanding history of severe claustrophobia and anxiety. Interval history: The patient reports feeling better, with decreased tenderness in the left leg, and only mild anxiety at this point. Exam Vital Signs (past 8 hours): - 08/25/24 07:00 08/25/24 07:30 08/25/24 11:30 Temperature 99.0 F Pulse Rate 100 H 108 H 104 H Respiratory Rate 31 H 16 17 Blood Pressure 174/72 H 132/61 Pulse Oximetry 97 94 Oxygen Flow Rate 0 0 Oxygen Delivery Method Room Air Oxygen Flow Rate 0 Narrative Exam Narrative: GENERAL: This is a well-nourished, well-developed obese female patient, appears anxious otherwise in no apparent distress. EYES: Pupils equal round and reactive. Extraocular motions intact. No scleral icterus. No injection or drainage. ENT: Mucous membranes pink and moist. NECK: Trachea midline. No JVD, bruits or lymphadenopathy. Supple, nontender, no meningeal signs. CARDIOVASCULAR: Regular rate and rhythm without murmurs, gallops, or rubs. RESPIRATORY: Clear to auscultation. GASTROINTESTINAL: Abdomen soft, non-tender, nondistended. EXTREMITIES: No clubbing, cyanosis, or edema. NEUROLOGIC: Alert, oriented, speech fluent, full upper and lower motor strength, no focal deficits evident. DERMATOLOGIC: Left lower extremity with improved erythema and tenderness over the lower 1/3 of the anterior anderson. Objective Labs 08/25/24 02:49 08/25/24 02:49 Labs: Laboratory Results - last 24 hr 08/24/24 08/24/24 08/24/24 14:10 15:21 18:34 WBC RBC Hgb Hct MCV MCH MCHC RDW Plt Count Neut % (Auto) Lymph % (Auto) [place] % (Auto) Eos % (Auto) Baso % (Auto) Neut # (Auto) Lymph # (Auto) [place] # (Auto) Eos # (Auto) Baso # (Auto) Sodium Potassium Chloride Carbon Dioxide BUN Creatinine Estimated GFR BUN/Creatinine Ratio Glucose Lactate 3.1 H 3.2 H Calcium Total Bilirubin AST ALT Alkaline Phosphatase Total Creatine Kinase 43 Troponin I < 0.012 Total Protein Albumin Globulin Albumin/Globulin Ratio Urine Color Yellow Urine Appearance Clear Urine pH 6.5 Ur Specific [place] 1.010 Urine Protein 1+ H Urine Glucose (UA) Trace H Urine Ketones 1+ H Urine Occult Blood Negative Urine Nitrate Positive H Urine Bilirubin Negative Urine Urobilinogen 0.2 Ur Leukocyte Esterase Trace H Urine RBC 0-1/hpf Urine WBC 1-5/hpf Ur Squamous Epith Cells 1-5 /hpf Urine Bacteria Few (2-10) H Ur Culture Indicated? Specimen cultured Vol Urine Centrifuged 10ml (spun) 08/24/24 08/24/24 08/25/24 21:42 23:53 02:49 WBC 17.1 H RBC 3.37 L Hgb 10.0 L Hct 30.0 L MCV 88.9 MCH 29.7 MCHC 33.4 RDW 14.0 Plt Count 256 Neut % (Auto) 85.6 H Lymph % (Auto) 9.9 L [place] % (Auto) 4.2 Eos % (Auto) 0.1 L Baso % (Auto) 0.2 Neut # (Auto) 39789 H Lymph # (Auto) 1700 [place] # (Auto) 700 Eos # (Auto) 0 Baso # (Auto) 0 Sodium 132 L Potassium 3.5 Chloride 104 Carbon Dioxide 23 BUN 13 Creatinine 0.61 Estimated GFR > 60 BUN/Creatinine Ratio 21.3 Glucose 168 H Lactate 2.3 H 1.9 Calcium 8.7 Total Bilirubin 0.4 AST 25 ALT 22 Alkaline Phosphatase 60 Total Creatine Kinase Troponin I < 0.012 Total Protein 5.9 L Albumin 3.1 L Globulin 2.8 Albumin/Globulin Ratio 1.1 Urine Color Urine Appearance Urine pH Ur Specific [place] Urine Protein Urine Glucose (UA) Urine Ketones Urine Occult Blood Urine Nitrate Urine Bilirubin Urine Urobilinogen Ur Leukocyte Esterase Urine RBC Urine WBC Ur Squamous Epith Cells Urine Bacteria Ur Culture Indicated? Vol Urine Centrifuged [facility] Surgical History Status post surgery (03/18/14) Social History household members: family and children Smoking Status: Former smoker Assessment & Plan Assessment & Plan narrative: 1. Left lower extremity cellulitis. Improved. Continue IV ceftriaxone and vancomycin pending cultures. 2. Sepsis syndrome due to 1., with leukocytosis, elevated lactate level, fever and tachycardia. Improved. Serum lactate has normalized. 3. Elevated blood pressures. Monitor with treatment. 4. Anxiety. Treat with benzodiazepine as needed. 5. Obesity. 6. DVT prophylaxis. Treat with low-dose subcutaneous Lovenox. 7. Code status: Full code. However she states due to severe claustrophobia she would never want to be intubated. Plan: -admit as inpatient -IV ceftriaxone and vancomycin -discontinue IV hydration -subcutaneous Lovenox -full code The patient is admitted as inpatient as she will require at least 2 midnights inpatient level care. Consider possible discharge tomorrow on oral antibiotics if doing well. Time-Based Coding :: [TOTAL MINUTES] spent with patient and on the chart (including review of chart, obtaining history, exam, reviewing outside data, placing orders, documenting exam and treatment plan, and counseling patient) on [DATE]. PROFEE Charge codes Subsequent inpatient/observation care: 49610
--- NOTE | 2024-08-25 16:44 | CM.DANOTE ---
B DCP Assessment Note Pt is a 74yo f here with UTI/sepsis/cellulites on left leg. PCP None, pt wary of doctors, unknown when last time worked with a PCP Payer [employer] and Medicare A only [employer] TECHNICAL MANAGER reviewed EMR. per chart, pt lives in [place]. Son Corwin is emergency contact, also from [place]. Tyshawn Montana and YVROSE Navarrete have been at bedside. Per chart, pt lives with adult children. Pt being treated with IV abx now. Per provider, may dc home with PO abx tomorrow. [employer] TECHNICAL MANAGER unable to meet with pt due to triaging needs. Will f/u about establishing PCP tomorrow. P: anticipate home with family when medically stable. CM Will f/u about establishing PCP tomorrow/as soon as able. CM team will continue to follow closely for any additional DCP needs that arise during course of stay. DAYO Caraballo Discharge Planning/Care Management CM Discharge Assessment Start: 08/25/24 16:43 Freq: Status: Active Protocol: Document 08/25/24 16:43 (Rec: 08/25/24 16:44 [id number]) Discharge Planning Assessment Assigned Resource Development Director DAYO Conroy DPOA/Assigned Designee Name tyshawn Correa Contact Information [phone] Advance Directives? No History Provided By Patient Prior Living Arrangements House Household Members family,children Independent with ADL's Yes Is patient alert and oriented? Yes Discharge Plan Home Referrals Initiated None needed Whiteboard Updated in Patient Room with No name and ext. # of Resource Development Director Review Status In Process Please Provide Date Initial DC 08/25/24 Assessment Was Performed Next Review Type Continued Stay Review
[2024-08-25] MEDS: cefTRIAXone 2,000 MG in SODIUM CHLORIDE 0.9% 100 ML 200 MG IV (18:49)
[2024-08-26 03:00] VITALS: BP 162/72; PULSE 102; RESP 26; TEMP 36.6; O2SAT 96
[2024-08-26 03:31] LABS: Add Manual Diff / Slide Review NO; Basophils Absolute Auto 100 /uL (0-100); Basophils Percent Auto 0.7 % (0-2); Eosinophils Absolute Auto 200 /uL (0-450); Eosinophils Percent Auto 1.8 % (2-4); Hematocrit 32.2 % (36-46); Hemoglobin 10.7 g/dL (12.0-16.0); Lymphocytes Absolute Auto 1800 /uL (1100-4500); Lymphocytes Percent Auto 16.2 % (25-40); Mean Corpuscular HGB Conc 33.2 % (30-36); Mean Corpuscular Hemoglobin 29.6 PG (26-34); Mean Corpuscular Volume 89.1 fL (80-100); Monocytes Absolute Auto 700 /uL (0-900); Neutrophils Absolute Auto 8500 /uL (1500-7000); Neutrophils Percent Auto 75.3 % (50-75); Platelet Count 259 X10^3/uL (150-400); Red Blood Cell Count 3.61 X10^6/uL (4.0-5.2); White Blood Cell Count 11.3 X10^3/uL (4.5-11.0)
[2024-08-26 04:22] LABS: BUN Creatinine Ratio 21.5 (6-22); Blood Urea Nitrogen 14 mg/dL (7-17); Calcium 8.6 mg/dL (8.4-10.2); Carbon Dioxide 22 mmol/L (22-32); Chloride 103 mmol/L (98-107); Estimated Glomerular Filt Rate > 60 mL/min (>60); Glucose 182 mg/dL (80-110); HEMOLYSIS < 15 (0-50); Potassium 3.9 mmol/L (3.4-5.1); Sodium 133 mmol/L (137-145)
[2024-08-26 04:34] LABS: Vancomycin Trough 10.4 ug/mL (10-20)
[2024-08-26] MEDS: VANCOMYCIN TROUGH 1 REQUEST MISC (04:46)
[2024-08-26] MEDS: VANCOMYCIN 1,500 MG/300 ML PIGGYBACK 200 MG IV (04:46)
[2024-08-26 08:00] VITALS: BP 153/75; PULSE 98; RESP 21; TEMP 37.2; O2SAT 100
[2024-08-26 08:09] LABS: Vancomycin Peak 23.5 ug/mL (20-40)
--- NOTE | 2024-08-26 08:37 | P.DS_ITS ---
History of Present Illness History of Present Illness Date Patient Seen: 08/26/24 Time Patient Seen: 08:10 Date of Onset of Symptoms: 08/24/24 Chief complaint: high fever, weakness, shaking Narrative: 74-year-old woman without a primary care provider, last seen several years ago by physician, not taking medications other than supplemental vitamin-D, presented to the emergency department with severe shaking chills and noticed left leg redness that came on last night. She presented to the emergency department today she did not want to have another night of shaking chills. She is seen with her son Rubén and [id number] Debby, and has no chest pain, breathing problems, nausea, vomiting, diarrhea, urinary symptoms headache, lightheadedness or falls. She notes a longstanding history of severe claustrophobia and anxiety. Discharge Providers Provider Date of admission: 08/24/24 16:13 Discharge Date: 08/26/24 Consults: 08/24/24 18:52 Consult to Discharge Planning Routine Comment: Discharge provider: Stanley Rodríguez MD Summary Hospital Course Discharge Diagnosis: 1. Left lower extremity cellulitis. 2. Sepsis syndrome due to 1., with leukocytosis, elevated lactate level, fever and tachycardia. 3. Elevated blood pressures. 4. Venous insufficiency 5. Stasis dermatitis 6. Anxiety. 7. Obesity. Hospital Course: The patient was admitted MrValeri broad-spectrum IV antibiotics. Blood cultures as well as urine cultures remained normal throughout the hospitalization. She improved significantly with resolution sepsis, with normalization of elevated lactate. She was noted to have mild hypertension with 150s to 160s over 70s at the time of discharge. Outpatient follow-up was recommended. She was also advised to wear lower extremity compression hose and treat stasis dermatitis with good topical [id number] hydration with lotions, and follow up with a newly assigned primary care provider within the next week. No other issues arose. Status at Discharge Cognitive/behavioral status at discharge: oriented Functional status at discharge: independent ambulation Overall status at discharge: patient is back to baseline Time Spent with Patient Time spent: Less than 30 minutes Exam Vital Signs (past 8 hours): - 08/26/24 03:00 Temperature 97.9 F Pulse Rate 102 H Respiratory Rate 26 H Blood Pressure 162/72 H Pulse Oximetry 96 Oxygen Flow Rate 0 Oxygen Delivery Method Room Air Oxygen Flow Rate 0 Narrative Exam Narrative: GENERAL: This is a well-nourished, well-developed obese female patient, appears anxious otherwise in no apparent distress. EYES: Pupils equal round and reactive. Extraocular motions intact. No scleral icterus. No injection or drainage. ENT: Mucous membranes pink and moist. NECK: Trachea midline. No JVD, bruits or lymphadenopathy. Supple, nontender, no meningeal signs. CARDIOVASCULAR: Regular rate and rhythm without murmurs, gallops, or rubs. RESPIRATORY: Clear to auscultation. GASTROINTESTINAL: Abdomen soft, non-tender, nondistended. EXTREMITIES: No clubbing, cyanosis, or edema. NEUROLOGIC: Alert, oriented, speech fluent, full upper and lower motor strength, no focal deficits evident. DERMATOLOGIC: Left lower extremity with improved erythema and resolved tenderness over the lower 1/3 of the anterior anderson. Objective Imaging *: Radiologist's impression: Chest x-ray: Radiologist's impression: No acute pulmonary process. Left lower extremity CT scan:: Radiologist's impression: No osteomyelitis, foreign body or abscess formation. CT findings consistent with cellulitis and secondary edema. Left lower extremity vascular ultrasound:: Radiologist's impression: No findings of lower extremity deep venous thrombosis. Labs 08/26/24 03:20 08/26/24 03:20 Labs: Laboratory Results - last 24 hr 08/26/24 08/26/24 03:20 07:35 WBC 11.3 H RBC 3.61 L Hgb 10.7 L Hct 32.2 L MCV 89.1 MCH 29.6 MCHC 33.2 RDW 14.0 Plt Count 259 Neut % (Auto) 75.3 H Lymph % (Auto) 16.2 L [place] % (Auto) 6.0 Eos % (Auto) 1.8 L Baso % (Auto) 0.7 Neut # (Auto) 8500 H Lymph # (Auto) 1800 [place] # (Auto) 700 Eos # (Auto) 200 Baso # (Auto) 100 Sodium 133 L Potassium 3.9 Chloride 103 Carbon Dioxide 22 BUN 14 Creatinine 0.65 Estimated GFR > 60 BUN/Creatinine Ratio 21.5 Glucose 182 H Calcium 8.6 Vancomycin Peak 23.5 Vancomycin Trough 10.4 PFSH Surgical History Status post surgery (03/18/14) Social History household members: family and children Smoking Status: Former smoker Discharge Plan Discharge Plan Patient Disposition: Home Provider Discharge Comment: Discharge planning to schedule followup at [facility] PCP within 1 week Discharge orders & Medications Prescriptions: New cephalexin 500 mg capsule 500 mg PO QID Qty: 28 0RF Continued acetaminophen [Tylenol] 325 mg Tablet 650 mg PO Q4H PRN (Reason: pain) Visit Report/Discharge Packet Stand Alone Forms: Patient Portal/API, Stroke Signs & Symptoms Quality MIPS - Admit I confirm the patient?s Advance Care Plan is present, Code status is documented, Surrogate decision maker is in patient?s record [If Yes, STOP here]: Yes MIPS - Meds 'Current medications' to include all prescriptions, unvu-hfl-[id number] products, herbals, cannabis/cannabidiol products, and vitamin/mineral/dietary (nutritional) supplements. I have utilized all available resources to obtain, update, or review the patient?s current medications. [If Yes, STOP here]: Yes MIPS - DC The patient has a history of heart transplant or Left Ventricular Assist Device (LVAD). If yes, STOP here.: No The patient has current or prior documentation of left ventricular ejection fraction (LVEF) less than or equal to 40%, or moderate or severely depressed left ventricular systolic function.: No A. The patient was prescribed or already taking an Angiotensin-Converting Enzyme (BRYAN) Inhibitor, or Angiotensin Receptor Violet (ARB).: No B. The patient was prescribed or already taking a beta-violet. [If Yes to Both A & B, STOP here]: No Patient not prescribed/taking BRYAN or ARB, no reason given.: No Patient not prescribed/taking beta-violet, no reason given.: No PROFEE Charge Codes Discharge inpatient/observation: [id number]
[2024-08-26] MEDS: ENOXAPARIN 40 MG/0.4 ML SYRINGE SUBCUT (08:44)
[2024-08-26] MEDS: VANCOMYCIN PEAK 1 REQUEST MISC (08:45)
--- NOTE | 2024-08-26 11:01 | CM.DPNOTE ---
DCP Note WORKFLOW DEVELOPER reviewed EMR. dc order in. provider hopeful for scheduling PCP appt prior to pt leaving for SOC/follow up. WORKFLOW DEVELOPER met with pt in room. confirms lives with son in [place]. requests for provider to be Dr. Love, son has Dr. Chaudhry as PCP. pt denies other DCP needs. Aylin from walk in [facility] agreed to assist in establishing SOC appt. Earliest possible is 09/14/24 at 4:30pm, check in 4:15pm. hospitalists confirms that timeline would be okay. WORKFLOW DEVELOPER gave pt paperwork with appt information. pt in agreement with plan. son on way to pick her up. WORKFLOW DEVELOPER updated RN. P: home with son support and OP f/u. son to transport. CM team will continue to follow as needed DAYO Caraballo
[2024-08-26] MEDS: LORazepam 2 MG/ML INJ 0.5 MG IV (12:50)
== END 2024-08-26 13:06 | disposition home or self-care (01) | DRG 872 ==
LOC: ED 15:47 → AC 16:15 → ICU 20:45
PROVIDERS: Admitting Provider Internal Medicine; Emergency Provider Emergency Medicine; Referring Provider Emergency Medicine; Visit Provider Internal Medicine
DX: A41.9 Sepsis, unspecified organism (principal); L03.116 Cellulitis of left lower limb; Z68.42 Body mass index [BMI] 45.0-49.9, adult; E66.9 Obesity, unspecified; F41.9 Anxiety disorder, unspecified; R00.0 Tachycardia, unspecified; I87.2 Venous insufficiency (chronic) (peripheral); I10 Essential (primary) hypertension; Z87.891 Personal history of nicotine dependence
CPT/HCPCS: 0241U; 36415; 71045; 73701; 80048; 80053; 80202; 81001; 81003; 82550; 82962; 83605; 83690; 84145; 84484; 85007; 85025; 85610; 85730; 87040; 87086; 93005; 93971; 96361; 96365; 96366; 96367; 99284; 99285; J0696; J1650; J2060; Q9967